=== PATIENT | male | born 1995 | race Caucasian/White ===

== ENCOUNTER 2016-08-02 00:51 | Emergency (ER) | payer SELFPAY ==
[~2016-08-02 00:51] MED LIST: HYDROmorphONE/DILAUDID 1 MG/ML SYR ONE
[2016-08-02 01:06] VITALS: RESP 16
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
[2016-08-02 02:50] VITALS: BP 132/78; PULSE 81; TEMP 98.1; O2SAT 95
--- NOTE | 2016-08-02 09:30 | CT ---
CT Head (Without Contrast) August 02, 2016 Indication: Head Injury. Technique: Standard noncontrast head CT protocol utilizing 5 mm thick collimated slices and field of view of 23 cm. Dose reduction techniques were utilized. Findings: Moderate right parietal scalp hematoma. No underlying acute fracture. No intracranial hemor rhage, contusion, swelling, or extraaxial fluid collection. The ventricles are normal caliber and mid line. The gutierres and white matter has normal attenuation. The paranasal sinuses are clear. Impression: 1. Right parietal scalp hematoma. 2. No acute fracture or evidence of acute intracranial injury. The study was performed as an emergency on-call case and discussed by telephone with Dr. Torres at 1 :40 a.m. The final interpretation is concordant with the original communication.
== END 2016-08-02 02:30 | disposition home or self-care (01) ==
DX: S00.83XA Contusion of other part of head, initial encounter (principal); F10.129 Alcohol abuse with intoxication, unspecified; F17.200 Nicotine dependence, unspecified, uncomplicated; Y04.0XXA Assault by unarmed brawl or fight, initial encounter; Y92.89 Other specified places as the place of occurrence of the external cause; Y99.8 Other external cause status; Y93.89 Activity, other specified
CPT/HCPCS: J1170

== ENCOUNTER 2016-08-02 07:10 | Emergency (ER) | payer SELFPAY ==
[2016-08-02 07:21] VITALS: TEMP 97.7
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
[2016-08-02 07:36] VITALS: BP 110/88; PULSE 81; RESP 16; O2SAT 97
== END 2016-08-02 07:36 | disposition home or self-care (01) ==
LOC: EDUNIT#
DX: S00.83XA Contusion of other part of head, initial encounter (principal); F10.129 Alcohol abuse with intoxication, unspecified; F17.200 Nicotine dependence, unspecified, uncomplicated; Y04.0XXA Assault by unarmed brawl or fight, initial encounter